=== PATIENT | female | born 1960 | race Two or more races ===

== ENCOUNTER 2025-06-09 08:53 | Outpatient (CLI) | payer MEDICAID ==
[2025-06-09 09:44] LABS: Urine Protein, UAD Negative (Negative)
[2025-06-09 10:06] LABS: Alanine Aminotransferase 23 U/L (7-40); Anion Gap 10 (5-15); BUN/Creatinine Ratio 17.3 (10.0-20.0); Blood Urea Nitrogen 14 mg/dL (9-23); Calcium 9.4 mg/dL (8.7-10.4); Carbon Dioxide 27 mmol/L (20-31); Chloride 104 mmol/L (98-107); Potassium 4.3 mmol/L (3.5-5.1); Sodium 141 mmol/L (136-145); Total Protein 7.3 g/dL (5.7-8.2); Triglycerides 143 mg/dL (< 150)
[2025-06-09 10:07] LABS: Albumin 4.2 g/dL (3.2-4.8); Cholesterol 151 mg/dL (< 200); HDL Cholesterol 42 mg/dL (40-59)
[2025-06-09 10:08] LABS: Bilirubin, Total 0.4 mg/dL (0.2-1.0)
[2025-06-09 10:09] LABS: Alkaline Phosphatase 140 U/L (46-116); Glucose 110 mg/dL (74-106)
== END 2025-06-09 17:00 | disposition home or self-care (01) ==
LOC: LAB 08:53
PROVIDERS: ATTEND Family Medicine
DX: E11.9 Type 2 diabetes mellitus without complications (principal)
CPT/HCPCS: 36415; 80053; 80061; 81001; 82043; 83036